=== PATIENT | female | born 1975 | race Two or more races ===

== ENCOUNTER 2016-06-09 07:02 | Inpatient (IN) | payer OTHER ==
--- NOTE | 2016-06-05 19:33 | HP ---
ZAKIYA ISIDRO V DATE OF SURGERY: 06/09/2016 PREOPERATIVE DIAGNOSIS: Intrauterine at term, with cholestasis of and diabetes. PROCEDURE PLANNED: A repeat low-transverse caesarian section. HISTORY OF PRESENT ILLNESS: The patient is a 41-year-old G-8, P-7, AB-0 woman with an EDC of 07/04/2016, currently at 36 weeks and three days. Her has been complicated by being on insulin for her diabetes that has been fairly well-controlled and her NSTs have been normal. Over the last month she developed diffuse itching and bile acid confirmed that she has cholestasis of . Because of the risk of that, that is why we are doing a repeat at 36 1/2 weeks. This is to prevent sudden unexplained . The patient has had normal non-stress tests and normal glucoses for the last few weeks in the , as well as normal ultrasounds and normal fluid. The patient's dating is based on an ultrasound in October at five weeks and six days. Her growth has been consistent and ultrasounds after that have been consistent with those dates. OB HISTORY: The patient has had six vaginal deliveries and one for twins. That was her last in 2014. PAST MEDICAL HISTORY: 1. She has diabetes because of the and is requiring insulin. 2. She has cholestasis of . CURRENT MEDICATIONS: She is on: 1. Insulin. 2. Vitamins. ALLERGIES: No known allergies. SOCIAL HISTORY: The patient lives with her children and . She does not smoke or use alcohol. FAMILY HISTORY: Positive for a mother and father with diabetes. REVIEW OF SYSTEMS: The patient denies any fever, chills, nausea, vomiting, diarrhea, constipation or dysuria. PHYSICAL EXAMINATION: GENERAL: She weighs 230 pounds. VITAL SIGNS: Blood pressure is 140/86. HEENT: Normal. LUNGS: Clear. HEART: Normal S1, S2. ABDOMEN: Soft. Fundal height of 42 cm. Good heart tones. IMPRESSION: A patient at 36 1/2 weeks for a repeat due to her cholestasis of and diabetes. PLAN: To do a repeat low-transverse caesarian section. The patient does not desire tubal ligation.
[2016-06-09] MEDS ORDERED: IV START KIT ONE (07:28)
[2016-06-09] MEDS ORDERED: LACTATED RINGERS 1,000 ML ONE (07:28)
[2016-06-09] MEDS ORDERED: CEFAZOLIN SODIUM 2 GRAM DUPLEX 2 G in Premix (D5W) 50 ml 1 EACH IV PRN (07:57)
[2016-06-09] MEDS ORDERED: LACTATED RINGERS 1,000 ML IV SCH (08:00)
[2016-06-09 08:01] VITALS: BMI 79.6
[2016-06-09 08:05] LABS: HEMATOCRIT 35.4 % (37.0-47.0); HEMOGLOBIN 11.9 gm/l (12.0-16.0); MEAN CELL VOLUME 79.6 fl (81.0-99.0); MEAN CORPUSCULAR HEMOGLOBIN 26.7 pg (27.0-31.0); MEAN CORPUSCULAR HGB CONC 33.6 g/dl (33.0-37.0); RED CELL DISTRIBUTION WIDTH 13.4 % (11.5-14.5)
[2016-06-09] MEDS ORDERED: SPINAL PROCEDURAL TRAY 1 EACH ONE ×2 (08:22→20:46)
[2016-06-09] MEDS ORDERED: MORPHINE SULFATE (DURAMORPH) 1 MG/ML 10ML AMP ONE (08:23)
[2016-06-09] MEDS ORDERED: DIPHENHYDRAMINE HCL 50 MG/1 ML VIAL ONE (08:23)
[2016-06-09] MEDS ORDERED: OXYTOCIN 10 UNITS/ML VIAL ONE (08:23)
[2016-06-09] MEDS ORDERED: EPHEDRINE SULFATE UD SYR 25 MG 25 MG/5 ML SYRINGE IV ONE ×2 (08:23→09:13)
[2016-06-09] MEDS ORDERED: CEFAZOLIN SODIUM 2 GRAM DUPLEX 50 ML IV ONE (08:23)
[2016-06-09] MEDS ORDERED: ONDANSETRON 4 MG/2ML 2 ML VIAL ONE (08:23)
[2016-06-09] MEDS ORDERED: EPHEDRINE SULFATE 50 MG/ML 1ML VIAL IV PRN (09:00)
[2016-06-09] MEDS ORDERED: DIPHENHYDRAMINE HCL 50 MG/1 ML VIAL IV PRN ×3 (09:00→22:29)
[2016-06-09] MEDS ORDERED: NALOXONE HCL 0.4 MG/ML VIAL IV PRN (09:00)
[2016-06-09] MEDS ORDERED: PROMETHAZINE HCL 25 MG/ML VIAL IM PRN (09:00)
[2016-06-09] MEDS ORDERED: ONDANSETRON 4 MG/2ML 2 ML VIAL IV PRN ×2 (09:00→22:29)
[2016-06-09] MEDS ORDERED: NALBUPHINE HCL 20 MG/ML AMP IV PRN (09:00)
[2016-06-09] MEDS ORDERED: KETOROLAC TROMETHAMINE 30 MG/ML 1 ML VIAL ONE (09:40)
[2016-06-09] MEDS ORDERED: HYDROMORPHONE HCL 1 MG/ML SYRINGE IV PRN (10:07)
[2016-06-09] MEDS ORDERED: DIPHENHYDRAMINE HCL 25 MG CAPSULE PO PRN ×2 (10:59→22:29)
[2016-06-09] MEDS ORDERED: KETOROLAC TROMETHAMINE 30 MG/ML 1 ML VIAL IV PRN (10:59)
[2016-06-09] MEDS ORDERED: OXYCODONE/ACETAMINOPHEN 5/325 MG TABLET PO PRN (10:59)
[2016-06-09] MEDS ORDERED: DIPHTH,PERTUSS(ACELL),TET VAC 0.5 ML VIAL IM V ONE (10:59)
[2016-06-09] MEDS ORDERED: IBUPROFEN 800 MG TABLET PO PRN (10:59)
[2016-06-09] MEDS ORDERED: LANOLIN 50 APPLIC/7G TUBE TP PRN ×2 (10:59→22:29)
[2016-06-09] MEDS ORDERED: MEASLES,MUMPS&RUBELLA VACCINE 0.5 ML VIAL SUB-Q V ONE ×2 (10:59→22:29)
[2016-06-09] MEDS: LACTATED RINGERS 1,000 ML IV SCH ×3 (11:00→23:50)
--- NOTE | 2016-06-09 11:33 | OP ---
ZAKIYA ISIDRO DATE OF OPERATION: June 09, 2016 PREOPERATIVE DIAGNOSES: 1. Intrauterine at 36 and 1/2 weeks with a previous section. 2. Maternal diabetes. 3. Maternal cholestasis of . POSTOPERATIVE DIAGNOSES: 1. Intrauterine at 36 and 1/2 weeks with a previous section. 2. Maternal diabetes. 3. Maternal cholestasis of . OPERATION PERFORMED: REPEAT LOW-TRANSVERSE SECTION. SURGEON: Reza Tam M.D. CHANNEL SALES DIRECTOR: Daniel Vásquez M.D. DETAILS OF PROCEDURE: The patient was taken to the operating room and spinal anesthesia was administered. She was placed in the supine position and prepped and draped in the usual sterile fashion. A Pfannenstiel skin incision was made with a scalpel through her previous incision. A second scalpel was used to reach the fascia. The fascial incision was extended with Johansen scissors. There was a lot of scarring with the fascia. The peritoneum was entered with Metzenbaums and extended. An Christian self-retaining retractor was inserted. The bladder flap was very high and was taken transversely with Metzenbaums and the bladder pushed downward. The uterus was entered making a small russell in the lower uterine segment and extending it laterally with fingers. Amniotic fluid was clear. A liveborn baby female was delivered form a vertex presentation with the help of a Mityvac. The placenta was manually removed and complete. The uterus was then closed in layers with the first layer being a running locked stitch of #0 Vicryl. There was a bleeding area that was closed with a [id number] suture of #0 Vicryl. The area was then imbricated with a running stitch of #0 Vicryl. Hemostasis was checked and found to be good. The tubes and ovaries were normal. The anterior peritoneum was then closed with a running suture of 2-0 Vicryl. The fascia was closed with two separate running sutures of #0 Vicryl. The skin was closed with misty. The patient tolerated the procedure well, and was taken to the recovery room in stable condition. All sponge, instrument and needle counts were correct. The estimated blood was 700 mL.
[2016-06-09] MEDS ORDERED: FLU VACC 2016-17 (36MO-64Y)/PF 60 MCG/0.5 ML SYRINGE IM V ONE (11:52)
[2016-06-09] MEDS: KETOROLAC TROMETHAMINE 30 MG/ML 1 ML VIAL IV SCH (15:37)
[2016-06-09] MEDS ORDERED: INSULIN NPH HUMAN RECOM (DOSE) 100 UNITS/1 ML SUB-Q SCH (17:30)
[2016-06-09] MEDS ORDERED: INSULIN REGULAR HUMAN (DOSE) 100 UNITS/1 ML SUB-Q ONE ×2 (17:48→21:48)
[2016-06-09] MEDS ORDERED: MIDAZOLAM HCL 5 MG/5 ML VIAL ONE (20:46)
[2016-06-09] MEDS ORDERED: FENTANYL 5 ML ONE (20:46)
[2016-06-09] MEDS ORDERED: DOCUSATE SODIUM 100 MG CAPSULE PO SCH (21:00)
[2016-06-09] MEDS ORDERED: CEFAZOLIN SODIUM 1,000 MG VIAL ONE (21:26)
[2016-06-09] MEDS ORDERED: INSULIN HUMAN NPH 70/REG 30 100 UNITS/1 ML UNIT (D0SE) SUB-Q ONE (21:49)
[2016-06-09] MEDS ORDERED: SURGICEL 3X4 1 EACH PACKET ONE (21:58)
[2016-06-09 23:40] LABS: INR 0.94; PROTHROMBIN TIME 9.9 SECONDS (9.3-11.4)
[2016-06-10] MEDS: OXYCODONE/ACETAMINOPHEN 5/325 MG TABLET PO PRN ×4 (05:23→20:03)
[2016-06-10] MEDS ORDERED: INSULIN NPH HUMAN RECOM (DOSE) 100 UNITS/1 ML SUB-Q SCH ×2 (07:00→09:00)
[2016-06-10] MEDS ORDERED: INSULIN REGULAR HUMAN (DOSE) 100 UNITS/1 ML SUB-Q SCH ×3 (07:00→17:30)
[2016-06-10] MEDS: INSULIN REGULAR HUMAN (DOSE) 100 UNITS/1 ML SUB-Q SCH ×2 (08:49→17:51)
[2016-06-10] MEDS: LACTATED RINGERS 1,000 ML IV SCH ×2 (08:52→17:21)
--- NOTE | 2016-06-10 08:56 | PDOC44 ---
- Subjective Day: 1 Reports Pain Tolerable, Reports , Reports Lochia Light - Objective Temp Pulse Resp BP Pulse Ox 98.2 F 78 16 147/73 98 06/10/16 02:49 06/10/16 02:49 06/10/16 02:49 06/10/16 02:49 06/09/16 12:44 Lab Results 06/09/16 23:15 Plt Count 134 06/10/16 06/10/16 06/10/16 08:19 05:25 00:12 POC Capillary Glucose 61 L 52 L 68 L 06/09/16 17:37 POC Capillary Glucose 191 H Current Medications Generic Name Dose Route Start Last Admin Trade Name Freq PRN Reason Stop Dose Admin Diphenhydramine HCl 25 - 50 mg 06/09/16 22:29 Benadryl PO Q6H PRN Itching (Mild/Moderate) Diphenhydramine HCl 25 - 50 mg 06/09/16 22:29 06/09/16 22:34 Benadryl IV 25 mg Q6H PRN Administration Itching (Severe) Docusate Sodium 100 mg 06/10/16 09:00 Colace PO BID [facility] Emollient Ointment 1 applic 06/09/16 22:29 [id number] TP PRN PRN sore nipples Lactated Ringer's 1,000 mls @ 125 mls/hr 06/09/16 22:29 06/10/16 08:52 Lactated Ringers IV Not Given .Q8H [facility] Insulin Human NPH 15 units 06/10/16 09:00 Novolin N SUB-Q BID VICTOR M Insulin Human Regular 10 - 15 units 06/10/16 07:00 06/10/16 08:49 Novolin R (Dose) SUB-Q Not Given BIDAC VICTOR M Multivi/Iron Carb/Fe Sulf/FA/Prenat 1 tab 06/10/16 09:00 Plus PO DAILY VICTOR M Ondansetron HCl 4 mg 06/09/16 22:29 Zofran IV Q6H PRN Nausea/Vomiting Oxycodone/Acetaminophen 1 - 2 tab 06/09/16 22:29 06/10/16 05:23 Percocet 5/325 PO 2 tab Q4H PRN Administration Pain (Moderate) Sodium Chloride 10 ml 06/09/16 22:29 Normal Saline 10ml Flush IV PRN PRN IV Flush Sodium Chloride 10 ml 06/10/16 01:00 Normal Saline 10ml Flush IV Q8HR VICTOR M - Physical Exam General: Afebrile Psych/Mental Status: Mood/Affect Appropriate Breast: Soft Fundus: Firm Abdomen: Normal Bowel Sounds Genitourinary: Normal Female Genitalia Wound PULLEY MAINTAINER: Dressing Clean/Dry/Intact Disposition: Stable
[2016-06-10] MEDS ORDERED: PRENATAL VIT/FE FUMARATE/FA 1 TABLET PO SCH (09:00)
[2016-06-10 10:05] LABS: HEMATOCRIT 27.3 % (37.0-47.0); HEMOGLOBIN 9.2 gm/l (12.0-16.0); MEAN CELL VOLUME 80.1 fl (81.0-99.0); MEAN CORPUSCULAR HGB CONC 33.7 g/dl (33.0-37.0); RED CELL DISTRIBUTION WIDTH 13.7 % (11.5-14.5)
--- NOTE | 2016-06-10 10:46 | CONS ---
ZAKIYA ISIDRO DATE OF ADMISSION: June 09, 2016 PREOPERATIVE DIAGNOSIS: incision bleeding. PROCEDURE PLANNED: Open incision to stop bleeding. HISTORY: The patient is a 41-year-old 8, para 6, AB 1, woman with diabetes and cholestasis of . She underwent a repeat section this morning which seemed to go well and was without incident. Everything was dry after coming out and misty were applied and she did well until late this afternoon when her dressing was saturated. I changed the dressing and put pressure on it and again it became saturated tonight. I opened up three of the misty and cleaned the area with saline and Q-tips. The fascia was intact but I could see active bleeding welling up in the incision, and therefore I decided to take her back to the operating room to adequately give her pain relief and control the bleeding. PAST MEDICAL HISTORY: 1. Diabetes. 2. Cholestasis. CURRENT MEDICATIONS: 1. Insulin. 2. Pain medicines. ALLERGIES: NO KNOWN DRUG ALLERGIES. PHYSICAL EXAMINATION: GENERAL: She is a healthy appearing woman. VITAL SIGNS: She has become slightly hypertensive throughout the day. ABDOMEN: Soft. Fundus is firm. Incision is described above. IMPRESSION: The impression is a patient with postoperative incisional bleeding. PLAN: Plan is to take her back to the operating room for exploration.
--- NOTE | 2016-06-10 12:40 | OP ---
Estela Richardson [id number] DATE: 06/09/2016 PREOPERATIVE DIAGNOSIS: incisional bleeding. OPERATION PERFORMED: Opening of incision and cauterizing and closing. SURGEON: Reza Tam M.D. PANEL MACHINE OPERATOR: Dr. Vásquez. DESCRIPTION OF PROCEDURE: The patient was taken to the operating room and spinal anesthesia was administered. She was placed in the supine position, prepped and draped in the usual sterile fashion. All of her misty were removed. The incision was opened. There was approximately 100 mL of clots in the incision, these were all evacuated and irrigation was performed. The fascia was intact. There was one bleeding area on the lower left corner and there was a bleeding area in the lower middle part of the incision, these were cauterized and the one on the left was suture ligated with 2-0 Vicryl figure of eight. We then closed with deep and irrigated again. A running subcutaneous stitch of 2-0 Plain was placed. Hemostasis was good. Misty were placed. Before we got the bandage on the right corner started bleeding again. Five misty were moved. There was one small area of bleeding superficially which was cauterized and a small piece of Surgicel was placed in the incision and she was re-stapled and hemostasis at that point was good. The patient tolerated the procedure well and was taken to recovery room in stable condition. All sponge, instrument, and needle counts were correct. Estimated blood loss 100 mL. JOB: [id number]
--- NOTE | 2016-06-10 12:42 | OP ---
Estela Richardson [id number] DATE: 06/09/2016 PREOPERATIVE DIAGNOSIS: incisional bleeding. OPERATION PERFORMED: Opening of incision and cauterizing and closing. SURGEON: Reza Tam M.D. RIVETER HELPER: Dr. Vásquez. DESCRIPTION OF PROCEDURE: The patient was taken to the operating room and spinal anesthesia was administered. She was placed in the supine position, prepped and draped in the usual sterile fashion. All of her misty were removed. The incision was opened. There was approximately 100 mL of clots in the incision, these were all evacuated and irrigation was performed. There was one bleeding area on the lower left corner and there was a bleeding area in the lower middle part of the incision, these were cauterized and the one on the left was suture ligated with 2-0 Vicryl figure of eight. We then closed with deep and irrigated again. A running subcutaneous stitch of 2-0 Plain was placed. Hemostasis was good. Misty were placed. Before we got the bandage on the right corner started bleeding again. Five misty were moved. There was one small area of bleeding superficially which was cauterized and a small piece of Surgicel was placed in the incision and she was re-stapled and hemostasis at that point was good. The patient tolerated the procedure well and was taken to recovery room in stable condition. All sponge, instrument, and needle counts were correct. Estimated blood loss 100 mL. JOB: [id number] E/trr
[2016-06-10] MEDS: PRENATAL VIT/FE FUMARATE/FA 1 TABLET PO SCH (12:51)
[2016-06-10] MEDS: DOCUSATE SODIUM 100 MG CAPSULE PO SCH ×2 (12:51→20:03)
[2016-06-10] MEDS: INSULIN REGULAR HUMAN (DOSE) 100 UNITS/1 ML SUB-Q PRN (17:51)
[2016-06-10] MEDS ORDERED: CALCIUM CARBONATE 500 MG TAB.CHEW PO ONE (19:56)
[2016-06-10] MEDS ORDERED: CALCIUM CARBONATE 500 MG TAB.CHEW PO PRN (19:57)
[2016-06-11] MEDS: OXYCODONE/ACETAMINOPHEN 5/325 MG TABLET PO PRN ×5 (00:11→20:14)
[2016-06-11] MEDS: LACTATED RINGERS 1,000 ML IV SCH ×3 (01:53→16:02)
[2016-06-11] MEDS: KETOROLAC TROMETHAMINE 30 MG/ML 1 ML VIAL IV SCH (07:23)
[2016-06-11] MEDS: PRENATAL VIT/FE FUMARATE/FA 1 TABLET PO SCH (08:08)
[2016-06-11] MEDS: DOCUSATE SODIUM 100 MG CAPSULE PO SCH ×2 (08:08→20:14)
--- NOTE | 2016-06-11 14:14 | PDOC44 ---
- Subjective Day: 2 not needing insulin. On more questioning, pt only on metformin when not . Reports Pain Tolerable, Reports , Reports Lochia Light - Objective Temp Pulse Resp BP Pulse Ox 98.6 F 97 18 140/78 98 06/11/16 08:32 06/11/16 08:32 06/11/16 08:32 06/11/16 08:32 06/09/16 12:44 06/11/16 06/11/16 06/10/16 12:01 00:33 17:43 POC Capillary Glucose 123 H 137 H 159 H 06/10/16 15:45 POC Capillary Glucose 202 H Current Medications Generic Name Dose Route Start Last Admin Trade Name Freq PRN Reason Stop Dose Admin Calcium Carbonate/Glycine 1,000 mg 06/10/16 19:57 06/10/16 20:20 Tums PO 1,000 mg DAILY PRN Administration Indigestion Diphenhydramine HCl 25 - 50 mg 06/09/16 22:29 Benadryl PO Q6H PRN Itching (Mild/Moderate) Diphenhydramine HCl 25 - 50 mg 06/09/16 22:29 06/09/16 22:34 Benadryl IV 25 mg Q6H PRN Administration Itching (Severe) Docusate Sodium 100 mg 06/10/16 09:00 06/11/16 08:08 Colace PO 100 mg BID VICTOR M Administration Emollient Ointment 1 applic 06/09/16 22:29 Dag-V-Xelofk TP PRN PRN sore nipples Lactated Ringer's 1,000 mls @ 125 mls/hr 06/09/16 22:29 06/11/16 12:17 Lactated Ringers IV Not Given .Q8H VICTOR M Insulin Human Regular 10 - 15 units 06/10/16 07:00 06/10/16 17:51 Novolin R (Dose) SUB-Q Not Given BIDAC VICTOR M Insulin Human Regular 0 units 06/10/16 17:19 06/10/16 17:51 Novolin R (Dose) SUB-Q 3 units ACBEDTIME PRN Administration Protocol Multivi/Iron Carb/Fe Sulf/FA/Prenat 1 tab 06/10/16 09:00 06/11/16 08:08 Plus PO 1 tab DAILY VICTOR M Administration Ondansetron HCl 4 mg 06/09/16 22:29 Zofran IV Q6H PRN Nausea/Vomiting Oxycodone/Acetaminophen 1 - 2 tab 06/09/16 22:29 06/11/16 14:11 Percocet 5/325 PO 2 tab Q4H PRN Administration Pain (Moderate) Sodium Chloride 10 ml 06/09/16 22:29 Normal Saline 10ml Flush IV PRN PRN IV Flush Sodium Chloride 10 ml 06/10/16 01:00 06/11/16 12:17 Normal Saline 10ml Flush IV Not Given Q8HR VICTOR M - Physical Exam General: Afebrile Psych/Mental Status: Mood/Affect Appropriate Breast: Soft Fundus: Firm Abdomen: Normal Bowel Sounds Genitourinary: Normal Female Genitalia Wound BESSEMER REGULATOR: Well Approximated, [place] Intact Disposition: Stable, Anticipate DC Home Tomorrow
[2016-06-11] MEDS: INSULIN REGULAR HUMAN (DOSE) 100 UNITS/1 ML SUB-Q SCH (15:54)
[2016-06-12] MEDS: OXYCODONE/ACETAMINOPHEN 5/325 MG TABLET PO PRN ×6 (00:39→18:30)
[2016-06-12] MEDS: LACTATED RINGERS 1,000 ML IV SCH ×2 (06:34→17:28)
[2016-06-12] MEDS: DOCUSATE SODIUM 100 MG CAPSULE PO SCH ×2 (10:34→21:00)
[2016-06-12] MEDS: PRENATAL VIT/FE FUMARATE/FA 1 TABLET PO SCH (10:34)
--- NOTE | 2016-06-12 11:42 | PDOC44 ---
- Subjective Day: 3 Reports Pain Tolerable, Reports , Reports Lochia Light - Objective Temp Pulse Resp BP Pulse Ox 98.3 F 96 16 155/89 98 06/12/16 08:00 06/12/16 08:00 06/12/16 08:00 06/12/16 08:00 06/09/16 12:44 06/12/16 06/12/16 06/11/16 10:37 01:42 22:58 POC Capillary Glucose 111 H 197 H 128 H 06/11/16 06/11/16 15:43 12:01 POC Capillary Glucose 195 H 123 H Current Medications Generic Name Dose Route Start Last Admin Trade Name Freq PRN Reason Stop Dose Admin Calcium Carbonate/Glycine 1,000 mg 06/10/16 19:57 06/10/16 20:20 Tums PO 1,000 mg DAILY PRN Administration Indigestion Diphenhydramine HCl 25 - 50 mg 06/09/16 22:29 Benadryl PO Q6H PRN Itching (Mild/Moderate) Diphenhydramine HCl 25 - 50 mg 06/09/16 22:29 06/09/16 22:34 Benadryl IV 25 mg Q6H PRN Administration Itching (Severe) Docusate Sodium 100 mg 06/10/16 09:00 06/12/16 10:34 Colace PO 100 mg BID VICTOR M Administration Emollient Ointment 1 applic 06/09/16 22:29 Olg-N-Asnuzx TP PRN PRN sore nipples Lactated Ringer's 1,000 mls @ 125 mls/hr 06/09/16 22:29 06/12/16 06:34 Lactated Ringers IV Not Given .Q8H [facility] Insulin Human Regular 0 units 06/10/16 17:19 06/10/16 17:51 Novolin R (Dose) SUB-Q 3 units ACBEDTIME PRN Administration Protocol Multivi/Iron Carb/Fe Sulf/FA/Prenat 1 tab 06/10/16 09:00 06/12/16 10:34 Plus PO 1 tab DAILY VICTOR M Administration Ondansetron HCl 4 mg 06/09/16 22:29 Zofran IV Q6H PRN Nausea/Vomiting Oxycodone/Acetaminophen 1 - 2 tab 06/09/16 22:29 06/12/16 06:11 Percocet 5/325 PO 1 tab Q4H PRN Administration Pain (Moderate) Sodium Chloride 10 ml 06/09/16 22:29 Normal Saline 10ml Flush IV PRN PRN IV Flush Sodium Chloride 10 ml 06/10/16 01:00 06/12/16 11:31 Normal Saline 10ml Flush IV Not Given Q8HR VICTOR M - Physical Exam General: Afebrile Psych/Mental Status: Mood/Affect Appropriate Fundus: Firm Abdomen: Normal Bowel Sounds Wound FISCAL AGENT: Well Approximated, [place] Intact Disposition: Stable, Anticipate DC to Home
[2016-06-12] MEDS: INSULIN REGULAR HUMAN (DOSE) 100 UNITS/1 ML SUB-Q PRN (15:28)
[2016-06-12 19:17] VITALS: BP 144/91
[2016-06-12] MEDS ORDERED: FLU VACC 2016-17 (36MO-64Y)/PF 60 MCG/0.5 ML SYRINGE IM V ONE (20:55)
--- NOTE | 2016-06-16 11:29 | DS ---
Estela Richardson DATE OF ADMISSION: 06/09/2016 DATE OF DISCHARGE: 06/12/2016 ADMITTING DIAGNOSIS: Intrauterine at term with cholestasis of and diabetes with a previous section. PROCEDURE PERFORMED IN THE HOSPITAL: 1. A repeat low transverse section. 2. Return to the operating room for hematoma in her incision. HISTORY: The patient is a 41-year-old 8, para 7, AB 0-1 with an estimated date of confinement of 07-04-2016 currently at 36 weeks and 3 days. has been complicated by being on insulin for her diabetes that has been fairly well controlled and NST have been normal. Over the past month she has developed diffuse itching and bile acid confirmed that she has cholestasis of . Because of that risk we are doing a repeat at 36-1/2 weeks. HOSPITAL COURSE: The patient was admitted and taken to the operating room where she underwent a repeat low transverse section without complication. Hemostasis at the end of the surgery was good. Later in the day in her room it was noted that she was having a lot of abdominal bleeding from her incision. That evening I opened up a few misty and there was large clots in there and we took back to the operating room and opened her incision and the fascia was intact. We took out a lot of clots. There were two small bleeding areas which were cauterized. The incision was put back together with misty and pressure put on it. The remainder of her postoperative course was unremarkable. She remained afebrile and no more bleeding. On the third postoperative day her misty were removed and Steri-Strips were placed and she was discharged home. She was given a prescription for Percocet and Colace. She is going to see her doctor about returning to metformin. Her postoperative blood glucoses were all in the normal range not requiring insulin. She will return to see me in 1 to 2 weeks. JOB: [id number]
== END 2016-06-12 21:14 | disposition home or self-care (01) | DRG 765 ==
LOC: FBC 07:02 → EDSTATUS 07-04 10:49
PROVIDERS: ADMIT Obstetrics & Gynecology; ATTEND Obstetrics & Gynecology
PROC: 10D00Z1 Extraction of Products of Conception, Low, Open Approach (ICD-10-PCS; principal; 2016-06-09)
PROC: 0W3J0ZZ Control Bleeding in Pelvic Cavity, Open Approach (ICD-10-PCS; 2016-06-09)
DX: O26.62 Liver and biliary tract disorders in childbirth (principal); K83.1 Obstruction of bile duct; L76.22 Postprocedural hemorrhage of skin and subcutaneous tissue following other procedure; O09.523 Supervision of elderly multigravida, third trimester; Z79.4 Long term (current) use of insulin; O34.211 Maternal care for low transverse scar from previous cesarean delivery; O24.424 Gestational diabetes mellitus in childbirth, insulin controlled; Y83.9 Surgical procedure, unspecified as the cause of abnormal reaction of the patient, or of later complication, without mention of misadventure at the time of the procedure; Z3A.36 36 weeks gestation of pregnancy; Z37.0 Single live birth